=== PATIENT | female | born 1955 | race Caucasian/White ===

== ENCOUNTER 2017-12-25 14:03 | Emergency (ER) | payer BC | END 2017-12-25 14:43 | disposition home or self-care (01) | LOC: D.ER 14:03 | DX: S61.452A Open bite of left hand, initial encounter (principal); S61.451A Open bite of right hand, initial encounter; W55.01XA Bitten by cat, initial encounter; Y93.89 Activity, other specified; Y92.019 Unspecified place in single-family (private) house as the place of occurrence of the external cause; E11.9 Type 2 diabetes mellitus without complications; I10 Essential (primary) hypertension ==

== ENCOUNTER 2019-04-27 09:00 | Outpatient (CLI) | payer BC | END 2019-04-27 10:00 | disposition home or self-care (01) | LOC: D.MAMMO 09:00 | PROVIDERS: ATTEND Surgery | DX: N60.32 Fibrosclerosis of left breast (principal) ==

== ENCOUNTER → 2019-05-10 12:52 | Outpatient (CLI) | payer BC | END | disposition home or self-care (01) | LOC: D.RAD 12:52 | PROVIDERS: ATTEND Family Medicine | DX: R13.10 Dysphagia, unspecified (principal) ==